=== PATIENT | female | born 1975 | race Caucasian/White ===

== ENCOUNTER 2024-06-09 11:58 | Emergency (ER) | payer OTHER, SELFPAY ==
--- NOTE | ~2024-06-09 | XR_ITS ---
EXAMINATION: XR CHEST CLINICAL INFORMATION: Dizziness. Shortness of breath. COMPARISON: None available. TECHNIQUE: 2 views of the chest were obtained. FINDINGS: The heart is normal in size. The lungs are clear. No pleural effusion. No pneumothorax. No acute osseous abnormality. XR/XR chest 2V IMPRESSION: No acute cardiopulmonary disease.
--- NOTE | ~2024-06-09 | CT_ITS ---
EXAMINATION: CT HEAD WITHOUT CONTRAST CLINICAL INFORMATION: Headache. COMPARISON: None available. TECHNIQUE: Contiguous axial imaging was performed from the skull base to vertex without intravenous administration of contrast. This CT examination was performed using dose optimization techniques as appropriate, variously including the following: *Automated exposure control *Adjustment of mA and/or kV according to patient size (this includes techniques or standardized protocols for targeted exams where dose is matched to indication/reason for exam; i.e. extremities or head) *Use of iterative reconstruction technique DLP: 643 mGy-cm FINDINGS: There is no acute intracranial hemorrhage. There is no evidence of acute/subacute cerebral or cerebellar infarction. There is no midline shift or mass effect. No extra-axial fluid collection. The ventricles are normal in size. The orbits are symmetric and within normal limits. Mastoid air cells are clear. Visualized paranasal sinuses are well-aerated. CT/CT head/brain wo IV con IMPRESSION: No acute intracranial pathology.
[2024-06-09 12:07] VITALS: BP 148/90; BP 156/104; PULSE 102; PULSE 115; RESP 13; TEMP 36.8; O2SAT 100; BMI 23.3
--- NOTE | 2024-06-09 12:32 | ED_ITS ---
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 She states while she was driving she felt dizzy and lightheaded and that her heart was beating fast. She states her heart rate was in the 150s. On arrival the patient states she still has palpitations feels like she might pass out she has had this for some time she is anxious and tearful on arrival she states she has seen a chief accounting officer for this and has been cleared. She denies any falls or injuries she denies any new stressors she denies SI or HI states she feels safe at home she states she did not feel well she woke up this morning. Related Data Allergies Allergy/AdvReac Type Severity Reaction Status Date / Time Erythromycin AdvReac Severe Stomach Uncoded 06/09/24 12:17 Upset Review of Systems 2 Review of Systems: Review of systems: General: Patient denies any fever chills recent illness or falls Musculoskeletal: Denies back pain or body aches or other injuries HEENT: denies headache, runny nose, ear pain Respiratory: denies shortness of breath, cough Cardiovascular: no chest pain or palpitations : denies dysuria, frequency Abdomen: no nausea vomiting denies abdominal pain Extremities: no swelling, no pain Skin: no diaphoresis Yes all other systems are reviewed and are negative [facility] Social History Social History Smoked in Last 30 Days: No Use of substances other than those prescribed or required for medical reasons: No Advance Directives: No Advance Directives Information Provided: Yes Do you have a plan to hurt others: No Plan Patient : No Physical Exam 2 Vital Signs: Vital Signs: Last Vital Signs Temp 98.2 F 06/09/24 12:07 Pulse 102 H 06/09/24 12:07 Resp 13 06/09/24 12:07 BP 156/104 H 06/09/24 12:07 Pulse Ox 100 06/09/24 12:07 O2 Del Method Room Air 06/09/24 12:07 BMI result Body Mass Index 23.3 Neurological exam: CN II- XII tested. Patient is alert and oriented to person place and time. Patient has no dysphagia or dysarthia, denies good vision in all four vision chew no nystagmus on exam, good strength to upper and lower extremities with normal reflexes to brachioradialis, wrist, patella and achilles. Negative romberg, good finger to nose and heel to chirinos. General: Well-appearing well-nourished in no signs of distress HEENT: Normocephalic atraumatic Neck: No signs of JVD, no masses no tenderness or lymphadenopathy Cardiovascular: Regular rate and rhythm Respiratory: Clear to auscultation bilaterally Abdomen: Soft nontender no masses Extremities: Normal pedal pulses no signs of edema Skin: Dry warm no rashes Back: No tenderness full ROM Course Course Course Narrative: Patient is feeling much better x-ray and labs are all normal patient has numerous symptoms I do feel comfortable discharging the patient home she now is complaining of her head saying she has headache earlier which has since resolved I do feel that this is likely anxiety driven she has a normal neuro exam on arrival as well as now I do still feel comfortable discharging home Medications Administered Generic Name Dose Route Start Last Admin Trade Name Freq PRN Reason Stop Dose Admin Sodium Chloride 1,000 mls @ 999 mls/hr 06/09/24 12:45 06/09/24 13:35 Ns IV 06/09/24 13:45 Infused .Q1H1M CRISTINA Infusion Discontinued Medications Generic Name Dose Route Start Last Admin Trade Name Freq PRN Reason Stop Dose Admin Lorazepam 1 mg 06/09/24 12:34 06/09/24 12:42 Lorazepam 2 Mg/Ml Vial IVPUSH 06/09/24 12:35 1 mg ONCE ONE Administration Ondansetron HCl 4 mg 06/09/24 12:34 06/09/24 12:42 Ondansetron Hcl 4 Mg/2 Ml Vial IVPUSH 06/09/24 12:35 4 mg ONCE ONE Administration Medical Decision Making Medical Decision Making [facility] Narrative: Patient appears to be cleaning palpitations normal heart rate we will get an EKG check labs I do think there is a lot of anxiety I will give patient some Ativan some Zofran some fluids check labs and reassess. Differential Diagnosis Differential Diagnoses: The differential diagnosis associated with the presentation includes Near-syncope dehydration electrolyte abnormality arrhythmia Lab Data [facility] Lab Attestation statement: I reviewed the patient's lab results. 06/09/24 12:46 06/09/24 12:46 Labs: Lab Results 06/09/24 Range/Units 12:46 WBC 6.3 (4.8-10.8) X10*3/uL RBC 4.82 (4.20-5.50) X10*6/uL Hgb 14.2 (12.0-16.0) g/dl Hct 41.8 (37.0-47.0) % MCV 86.7 (80.0-98.0) fL MCH 29.5 (27.0-33.0) pg MCHC 34.0 (31.0-35.0) g/dl RDW 12.5 (11.0-16.0) % Plt Count 237 (160-400) X10*3/uL MPV 10.7 (9.4-12.3) fL Immature Gran % (Auto) 0.2 (0.0-0.4) % Neut % (Auto) 60.2 (45-73) % Lymph % (Auto) 29.7 (20-40) % [place] % (Auto) 7.7 (2-11) % Eos % (Auto) 1.3 (0-4) % Baso % (Auto) 0.9 (0-2) % Lymph # (Auto) 1.9 (1.2-4.9) X10*3/uL [place] # (Auto) 0.5 (0.1-1.2) X10*3/uL Eos # (Auto) 0.1 (0.0-0.4) X10*3/uL Baso # (Auto) 0.1 (0.0-0.2) X10*3/uL Abs Immat Gran (auto) 0.01 (0.00-0.03) X10*3/uL Absolute Neuts (auto) 3.8 (2.0-8.3) x10*3/uL Absolute Nucleated RBC 0.000 (0.0-0.012) X10*3/uL Nucleated RBC % (auto) 0.0 (0.0-0.2) /100WBC Sodium 138 (135-145) mmol/L Potassium 4.1 (3.3-5.1) mmol/L Chloride 105 (96-108) mmol/L Carbon Dioxide 25 (22-29) mmol/L Anion Gap 12 (12-20) BUN 17 H (9-16) mg/dL Creatinine 0.99 (0.5-1.4) mg/dL Estim Creat Clear Calc 60.4 Estimated GFR 59 Random Glucose 91 (60-115) mg/dL Calcium 8.5 (8.4-10.2) mg/dL Total Bilirubin 0.6 (0.0-1.0) mg/dL Direct Bilirubin 0.2 (0.0-0.5) mg/dL AST 19 (5-31) U/L ALT 25 (0-31) U/L Alkaline Phosphatase 92 (39-117) U/L Total Protein 6.2 L (6.5-8.0) g/dL Albumin 3.7 (3.5-5.0) g/dL Lipase 14 (8-78) U/L Independent Interpretation I performed an independent interpretation of an: EKG and Plain X-Ray Interpretation: Rate 85 normal sinus rhythm normal intervals no signs ischemia no signs of Brugada there is no right bundle-branch block pattern in V1 V2 the QTC is not prolonged patient has no short MN interval with quick up strike or delta wave consistent with Bkhdo-Cgpcgyeaf-Fzoyf patient does not have any epsilon wave or signs of right arrhythmogenic ventricular hypertrophy there is also no LVH seen to suggest the patient might hypertrophic cardiomyopathy. Radiology Impression Discussion of test interpretation with radiology: I have reviewed the radiologist's reading. Independent Historian Clinical information obtained from an independent historian. History obtained from or confirmed by: Spouse External Record Review External record reviewed: Inpatient record Patient behavioral for this previous records to review Discharge Plan Discharge Clinical Impression: Dizziness, Headache, Near syncope Patient Disposition: Home, Self-Care Instructions: Dizziness (ED), Near Syncope (ED) Additional Instructions: You were seen today for dizziness chest tightness and headache. You had x-ray labs that were all normal. Your exam was completely normal on arrival as well. Please call follow up with the doctor if you have any other concerns please do not hesitate to come back to the emergency department. Print Language: [place]
--- NOTE | 2024-06-09 12:34 | ECG_ITS ---
Test Reason : dizziness Blood Pressure : / mmHG Vent. Rate : 085 BPM Atrial Rate : 085 BPM P-R Int : 122 ms QRS Dur : 094 ms QT Int : 374 ms P-R-T Axes : 064 046 028 degrees QTc Int : 445 ms Normal sinus rhythm Normal ECG No previous ECGs available Referred By: Carlos Dumont Electronically Signed By:Reginald Irwin
[2024-06-09] MEDS: ondansetron HCL 4 MG/2 ML VIAL IVPUSH (12:42)
[2024-06-09] MEDS: LORazepam 2 MG/ML VIAL 1 MG IVPUSH (12:42)
[2024-06-09] MEDS: 0.9 % Sodium Chloride 1,000 ML 999 ML IV (12:47)
--- NOTE | 2024-06-09 12:47 | MHC.EDTECH ---
This tech performed EKG, check pt for positioning, call mora within reach.
[2024-06-09 12:56] LABS: MANUAL DIFF FLAG NO
[2024-06-09 12:57] LABS: Basophils Absolute Auto 0.1 X10*3/uL (0.0-0.2); Basophils Percent Auto 0.9 % (0-2); Eosinophils Absolute Auto 0.1 X10*3/uL (0.0-0.4); Eosinophils Percent Auto 1.3 % (0-4); Hematocrit 41.8 % (37.0-47.0); Hemoglobin 14.2 g/dl (12.0-16.0); Imm Gran Abs Auto 0.01 X10*3/uL (0.00-0.03); Imm Gran Pct Auto 0.2 % (0.0-0.4); Lymphocytes Absolute Auto 1.9 X10*3/uL (1.2-4.9); Lymphocytes Percent Auto 29.7 % (20-40); Mean Corpuscular Hemoglobin 29.5 pg (27.0-33.0); Mean Corpuscular Volume 86.7 fL (80.0-98.0); Mean Platelet Volume 10.7 fL (9.4-12.3); Monocytes Absolute Auto 0.5 X10*3/uL (0.1-1.2); Monocytes Percent Auto 7.7 % (2-11); Neutrophils Absolute Auto 3.8 x10*3/uL (2.0-8.3); Neutrophils Percent Auto 60.2 % (45-73); Platelet Count 237 X10*3/uL (160-400); Red Blood Count 4.82 X10*6/uL (4.20-5.50); Red Cell Distribution Width 12.5 % (11.0-16.0); White Blood Count 6.3 X10*3/uL (4.8-10.8)
[2024-06-09 13:15] LABS: Alanine Aminotransferase 25 U/L (0-31); Albumin Level 3.7 g/dL (3.5-5.0); Alkaline Phosphatase 92 U/L (39-117); Anion Gap 12 (12-20); Aspartate Amino Transferase 19 U/L (5-31); Bilirubin Direct 0.2 mg/dL (0.0-0.5); Bilirubin Total 0.6 mg/dL (0.0-1.0); Blood Urea Nitrogen 17 mg/dL (9-16); Calcium 8.5 mg/dL (8.4-10.2); Carbon Dioxide 25 mmol/L (22-29); Chloride 105 mmol/L (96-108); Creatinine Clr Calc Pharmacy 60.4; Estimated Glomerular Filt Rate 59; Glucose Random 91 mg/dL (60-115); Lipase 14 U/L (8-78); Potassium 4.1 mmol/L (3.3-5.1); Sodium 138 mmol/L (135-145); Total Protein 6.2 g/dL (6.5-8.0)
--- NOTE | 2024-06-09 13:36 | PC.NURSE ---
Pt anxious upon arrival, medicated with Ativan per MAR. Upon reassessment pt much calmer, NSR on the monitor HR 70s, denies cp at this time. at bedside, call mora within reach, pt aware of plan of care.
[2024-06-09 13:52] VITALS: BP 141/76; PULSE 89; RESP 13; TEMP 36.8; O2SAT 99
[2024-06-09] MEDS: Ketorolac Tromethamine 15 MG/ML VIAL IVPUSH (15:26)
[2024-06-09] MEDS: Acetaminophen 325 MG TABLET 650 MG PO (15:26)
[2024-06-09 16:01] VITALS: BP 119/66; PULSE 84; RESP 20; TEMP -17.7; TEMP 0; O2SAT 98
== END 2024-06-09 16:02 | disposition home or self-care (01) ==
PROVIDERS: Emergency Provider Student in an Organized Health Care Education/Training Program; PCP Family Medicine
DX: R42 Dizziness and giddiness (principal); R51.9 Headache, unspecified; R55 Syncope and collapse; F41.9 Anxiety disorder, unspecified
CPT/HCPCS: 36415; 70450; 71046; 80048; 80076; 83690; 85025; 93005; 96361; 96374; 96375; 99284; 99285; J1885; J2060; J2405

== ENCOUNTER → 2024-06-09 12:34 | Outpatient (BNV) | payer OTHER, SELFPAY | PROVIDERS: Emergency Provider Student in an Organized Health Care Education/Training Program; PCP Family Medicine; Visit Provider Internal Medicine Cardiovascular Disease | DX: R07.9 Chest pain, unspecified (principal) | CPT/HCPCS: 93010 ==